=== PATIENT | female | born 1965 | race Caucasian/White ===

== ENCOUNTER → 2019-12-06 | Outpatient (CLI) | payer BC | LOC: VAS 08:04 | DX: Z13.6 Encounter for screening for cardiovascular disorders (principal); R60.0 Localized edema ==

== ENCOUNTER 2021-10-21 16:56 | Emergency (ER) | payer BC ==
[~2021-10-21] VITALS: Ht 167.6 cm; Wt 88.6 kg
[2021-10-21] MEDS ORDERED: LEVOTHYROXINE75 MCG PO (17:13)
[2021-10-21] MEDS ORDERED: MELOXICAM15 MG PO (17:13)
[2021-10-21] MEDS ORDERED: BUPROPION XL450 MG PO (17:14)
[2021-10-21 20:41] VITALS: BP 150/78
== END 2021-10-21 20:42 | disposition home or self-care (01) ==
LOC: ED 16:56
DX: T63.441A Toxic effect of venom of bees, accidental (unintentional), initial encounter (principal)
CPT/HCPCS: J3490